=== PATIENT | male | born 1980 | race Caucasian/White ===

== ENCOUNTER 2019-05-17 16:02 | Emergency (ER) | payer BC ==
[~2019-05-17] VITALS: Ht 193 cm; Wt 158.7 kg
[2019-05-17 16:32] VITALS: Ht 193 cm; Wt 158.7 kg
--- NOTE | 2019-05-17 17:45 | ERD ---
ER Documentation Chief Complaint Chief Complaint left knee s/p injury @ wk 05/11/19, pain getting worse HPI 39-year-old male, presents to the emergency department, complaining of worsening of left knee pain after sustaining a work-related injury on 05/11/2019. The pain is 6/10, worsened by ambulation and knee flexion. The patient has been taking ibuprofen and Tylenol with mild improvement of the symptoms. He is requesting an MRI of the knee. He denies distal weakness, numbness or tingling. ROS All systems reviewed and are negative except as per history of present illness. Medications Home Meds Active Scripts Prednisone* (Prednisone*) 20 Mg Tab, 60 MG PO DAILY for 5 Days, TAB Prov:NATAN JURADO MD 05/17/19 Allergies Allergies: Coded Allergies: No Known Allergy (Unverified , 05/17/19) Physical Exam Vitals Vital Signs Date Temp Pulse Resp B/P (MAP) Pulse Ox O2 O2 Flow FiO2 Time Delivery Rate 05/17/19 98.7 74 18 160/98 98 16:32 (118) Physical Exam Patient alert, oriented, vital signs stable. HEAD: Normocephalic, atraumatic. EYES: PERRLA, EOMI, Sclera and conjunctiva appear normal. NOSE: Clear and patent nostrils. EARS: Canals clear, tympanic membranes WNL. MOUTH: normal lips and tongue, no oral lesions. THROAT: Normal oropharynx, no tonsillar exudates. NECK: Supple, No lymphadenopathy. Full ROM without pain or tenderness. HEART: RRR, no rubs, murmurs, clicks or gallops. LUNGS: Clear to auscultation. ABDOMEN: Soft, non-tender without masses or hepatosplenomegaly. EXTREMITIES: Left knee: With knee immobilizer in place, distal neurovascular exam intact BACK: Full ROM, no deformity, normal back exam NEURO: Cranial nerves grossly intact, no motor or sensory deficit SKIN: No rashes, no petechia. Procedures/MDM Acute left knee pain: no red flags. Differential diagnosis include but not limited to: Knee contusion, meniscus injury, tendon/ligament injury, arthritis; low suspicion for fracture, dislocation, septic arthritis. Neurovascular exam grossly intact. no clinical findings suggestive of acute infectious process, no acute deformity, no edema, no rashes. Physical examination and clinical presentation consistent most likely with derangement of the left knee. Treatment options and clinical impression discussed with the patient who agrees with management. The patient is stable to be treated outpatient and will be discharged home with recommendations for ice, rest, prednisone for 5 days and close monitoring. The patient was instructed to follow up with the primary care provider in the next 48h. If symptoms persist, worsen or new symptoms develop, then patient should return to the ED immediately. Instructions explained and given to patient with acknowledgment and demonstrated understanding. Disclaimer: Inadvertent spelling and grammatical errors are likely due to EHR/dictation software use and do not reflect on the overall quality of patient care. Also, please note that the electronic time recorded on this note does not necessarily reflect the actual time of the patient encounter. Departure Diagnosis: Primary Impression: Work related injury Additional Impression: Derangement of knee, left Condition: Stable Additional Instructions: Thank you very much for allowing us to participate in your care. Your health and safety is our top priority at [facility]. The evaluation in the emergency department has been done to rule out an acute emergency. Chronic, [id number] conditions may have not been evaluated; therefore, you need to follow up with a primary care provider in the next 48h. If symptoms persist, worsen or new symptoms develop, then patient should return to the ED immediately. Call your primary care doctor TOMORROW for an appointment during the next 2-4 days and bring all the information provided. Have prescriptions filled and follow precisely the directions on the label. If the symptoms get worse and your provider is unavailable, return to the Emergency Department immediately. NATAN JURADO MD May 17, 2019 17:45
[2019-05-17] MEDS ORDERED: PRED20TA PO (18:07)
[2019-05-17 18:36] VITALS: BP 159/96; PULSE 75; RESP 18
== END 2019-05-17 18:37 | disposition home or self-care (01) ==
LOC: FTE 16:02
DX: M23.92 Unspecified internal derangement of left knee (principal)
CPT/HCPCS: 99283